=== PATIENT | female | born 1995 ===

== ENCOUNTER → 2024-01-27 | Outpatient (CLI) | payer OTHER ==
[2024-01-27 18:14] LABS: Source, Urine Voided
[2024-01-27 18:53] LABS: Bacteria Many /hpf; Squamous Epithelial Cells Mod /hpf (Few)
[2024-01-27 19:02] LABS: U Amphetamine Screen Not Detected; U Barbituate Screen Not Detected; U Benzodiazapine Screen Not Detected; U Buprenorphine Screen Not Detected; U Cannabinoids Screen Not Detected; U Cocaine Screen Not Detected; U Methadone Screen Not Detected; U Methamphetamine Screen Not Detected; U Opiates Screen Not Detected; U Oxycodone Screen Not Detected; U Phencyclidine Screen Not Detected
== END ==
LOC: LAB 18:11 → LAB SHORT 18:11
PROVIDERS: Family Medicine
DX: Z34.01 Encounter for supervision of normal first pregnancy, first trimester (principal)
CPT/HCPCS: 81015; 87086

== ENCOUNTER → 2024-07-27 | Outpatient (CLI) | payer OTHER | LOC: LAB 12:45 → LAB SHORT 12:45 | DX: Z34.93 Encounter for supervision of normal pregnancy, unspecified, third trimester (principal) | CPT/HCPCS: 87081; 87150 ==

== ENCOUNTER 2024-08-06 02:40 | Inpatient (IN) | payer OTHER ==
[~2024-08-06] VITALS: Ht 163 cm; Wt 81.4 kg
[2024-08-06] VITALS (30 sets, daily range): BP systolic 102–140; BP diastolic 55–85
[2024-08-06] MEDS ORDERED: Misoprostol 200 MCG Tab BC PRN (03:05)
[2024-08-06] MEDS ORDERED: Carboprost Tromethamine 250 MCG/ML 1ML Amp IM PRN (03:05)
[2024-08-06] MEDS ORDERED: ePHEDrine Sulfate 50 MG/ML 1ML Injection XX PRN (03:05)
[2024-08-06] MEDS ORDERED: Acetaminophen 500 MG Tab PO PRN ×2 (03:05→14:00)
[2024-08-06] MEDS ORDERED: Lactated Ringer's 1,000 ML IV PRN (03:05)
[2024-08-06] MEDS ORDERED: Methylergonovine Maleate 0.2MG / ML 1ML Amp IM PRN (03:05)
[2024-08-06] MEDS ORDERED: FentaNYL Citrate 50 MCG/ML 2 ML Injection IV PRN (03:05)
[2024-08-06] MEDS ORDERED: OXYTOCIN/RINGER'S LACTATE 500 ML IV PRN (03:05)
[2024-08-06] MEDS ORDERED: Tranexamic Acid 100 ML IV SCH (03:05)
[2024-08-06] MEDS ORDERED: Oxytocin 10 Unit / ML Vial IM PRN (03:05)
[2024-08-06] MEDS ORDERED: Ondansetron HCl 2 MG / ML 2ML Vial IV PRN ×2 (03:05→06:00)
[2024-08-06] MEDS ORDERED: Misoprostol 200 MCG Tab PR PRN ×2 (03:05→14:00)
[2024-08-06] MEDS ORDERED: FentaNYL 2mcg/ml-Bup 0.1% Epd 250 ML EPI PRN (03:05)
[2024-08-06] MEDS ORDERED: Lactated Ringer's 1,000 ML IV SCH ×3 (03:05→14:05)
[2024-08-06] MEDS ORDERED: Calcium Carbonate 500 MG Tab Chew PO PRN (03:10)
[2024-08-06] MEDS ORDERED: FAMO20 PO (03:16)
[2024-08-06] MEDS ORDERED: PRENATAL TABLE1 EAC2 PO (03:17)
[2024-08-06 03:30] LABS: BASOPHILS ABSOLUTE AUTO 0.01 K/mm3 (0.00-0.23); BASOPHILS PERCENT AUTO 0 % (0-2); EOSINOPHILS ABSOLUTE AUTO 0.05 K/mm3 (0.00-0.68); EOSINOPHILS PERCENT AUTO 1 % (0-6); Hematocrit 37.6 % (33.0-51.0); Hemoglobin 13.6 g/dL (11.5-16.0); IMMATURE GRAN ABSOLUTE AUTO 0.03 K/mm3 (0.00-0.10); IMMATURE GRAN PERCENT AUTO 0 % (0-1); LYMPHOCYTES ABSOLUTE AUTO 2.03 K/mm3 (0.84-5.20); LYMPHOCYTES PERCENT AUTO 28 % (21-46); MONOCYTES ABSOLUTE AUTO 0.52 K/mm3 (0.16-1.47); MONOCYTES PERCENT AUTO 7 % (4-13); Mean Corpuscular HGB 30.6 pg (26.0-34.0); Mean Corpuscular HGB Conc 36.2 g/dL (31.5-36.5); Mean Corpuscular Volume 85 fL (80-100); Mean Platelet Volume 11.8 fL (9.1-12.4); NEUTROPHILS ABSOLUTE AUTO 4.71 K/mm3 (1.96-9.15); NEUTROPHILS PERCENT AUTO 64 % (41-73); Platelet Count 166 K/mm3 (150-400); RDW Standard Deviation 39.8 fL (35.1-46.3); Red Blood Cell Count 4.45 M/mm3 (3.80-5.20); White Blood Cell Count 7.35 K/mm3 (4.00-11.30)
[2024-08-06] MEDS ORDERED: ePHEDrine Sulfate 50 MG/ML 1ML Injection IV PRN (06:00)
[2024-08-06] MEDS ORDERED: Metoclopramide HCl 5MG / ML 2ML Vial IV PRN (06:00)
[2024-08-06] MEDS ORDERED: DiphenhydrAMINE HCl 50 MG/ML 1ML Vial IV PRN (06:00)
[2024-08-06] MEDS ORDERED: Naloxone HCl 0.4MG / ML 1ML Vial IV PRN (06:00)
[2024-08-06] MEDS ORDERED: FLU VACC TS2024-25(6MOS UP)/PF 45 MCG/0.5 ML SYRINGE IM SCH (14:00)
[2024-08-06] MEDS ORDERED: Benzocaine Topical Anesthetic Spray 60GM TOP PRN (14:05)
[2024-08-06] MEDS ORDERED: Oxytocin 10 Unit / ML Vial IM ONE (14:05)
[2024-08-06] MEDS ORDERED: Ibuprofen 400 MG Tab PO PRN (14:05)
[2024-08-06] MEDS ORDERED: Witch Hazel/Glycerin PADS TOP PRN (14:05)
[2024-08-06] MEDS ORDERED: CeFAZolin Sodium 2,000 MG in NS 100 ML IV ONE (14:15)
--- NOTE | 2024-08-06 15:30 | NUR ---
ASSUMED CARE OF PT
--- NOTE | 2024-08-06 17:27 | NUR ---
pt used her manager of software development on her phone, reports doing well, just feed baby for 10 minutes
[2024-08-06] MEDS ORDERED: Ketorolac Tromethamine 30mg Vial IV SCH (18:00)
[2024-08-07 03:09] VITALS: BP 106/61
[2024-08-07 07:52] VITALS: BP 116/62
--- NOTE | 2024-08-07 08:55 | NUR ---
0750: DR. URIAS AT BEDSIDE. PROVIDER AND RN USING AEROLOGIST PHONE TO COMMUINICATE WITH PT. PT NEERAJ NB AND SELF CARE WELL. ASKS APPROPRIATE QUESTIONS. DEMONSTRATES UNDERSTANDING. D/C INSTRUCTIONS PRINTED IN [place] FOR PT. PT CONSENTS TO IN PERSON AEROLOGIST TO COME IN WITH OSCILLOGRAPH TECHNICIAN PER OSCILLOGRAPH TECHNICIAN REQUEST. PT D/C BACK DISCOMFORT FROM [facility]. ICE PACK AND IBUPROFEN PROVIDED WITH PT'S PERMISSION.
--- NOTE | 2024-08-07 08:58 | NUR ---
0800: DISCUSSED PLAN FOR D/C TODAY WITH COMMERCIAL PLUMBER PHONE. PT VERBALIZES UNDERSTANDING.
[2024-08-07] MEDS ORDERED: Prenatal Vit/FE Fumarate/FA 1 Tab PO SCH (09:00)
[2024-08-07 11:19] VITALS: BP 123/61
--- NOTE | 2024-08-07 12:02 | NUR ---
PT UP IN ROOM. DENIES PAIN. FRESHLY SHOWERED AND NEERAJ SELF AND NB CARE WELL. DISCUSSED D/C HOME THIS AFTERNOON.
--- NOTE | 2024-08-07 12:29 | NUR ---
SUPERVISOR FUSING ROOM EREN HERE TO INTERPRET FOR D/C INSTRUCTIONS AND TEACHINGS AND HERE WITH DR. PALOMO.
--- NOTE | 2024-08-07 14:52 | NUR ---
D/C HOME WITH BABY
== END 2024-08-07 15:00 | disposition home or self-care (01) | DRG 798 ==
LOC: BC 02:40 → OBS 02:40 → BC 02:42 → OBS 03:03 → BC 03:04
PROVIDERS: ADMIT Advanced Practice Midwife
PROC: 10E0XZZ Delivery of Products of Conception, External Approach (ICD-10-PCS; principal; 2024-08-06)
PROC: 10D17ZZ Extraction of Products of Conception, Retained, Via Natural or Artificial Opening (ICD-10-PCS; 2024-08-06)
DX: O99.214 Obesity complicating childbirth (principal); Z37.0 Single live birth; Z3A.38 38 weeks gestation of pregnancy; O73.0 Retained placenta without hemorrhage
CPT/HCPCS: 85025; 86850; 86900; 86901; A9270; J0690; J2405; J3010; J7120